=== PATIENT | female | born 1990 | race Caucasian/White ===

== ENCOUNTER 2021-12-18 15:12 | Inpatient (IN) ==
[2021-12-18] MEDS ORDERED: OXYTOCIN 30 UNITS/500 ML BAG IV PRN ×2 (15:18→22:22)
[2021-12-18] MEDS ORDERED: SODIUM CHLORIDE 0.9% 250 ML IV PRN (15:18)
--- NOTE | 2021-12-18 15:26 | History & Physical Report ---
Date of Service December 18, 2021 Assessment & Plan (1) Normal in third trimester: Plan: -ordered type and cross 2 Units -continue to monitor Admission and Anticipated Discharge Date Admission Date: December 18, 2021 History of Present Illness Chief Complaint: Labor Primary Care Provider: Eladia Shelton PA-C 31yo here for labor check. Contractions 2-6min apart starting 3hr ago, normal movement, some discharge but no bleeding/gush of fluid. Patient states no complications this but previously have post hemorrhage. Patient has been attending OB appointments regularly. Takes vitamin at home. GBS negative OB Labs: Blood Type A Positive 06/13/21 Antibody Screen NEGATIVE 06/13/21 Hemoglobin 12.5 g/dL (12.0-16.0) 10/13/21 Hematocrit 37.9 % (37-47) 10/13/21 Mean Corpuscular Volume 95.2 fL (80-100) 10/13/21 Platelet Count 204 K/uL (130-400) 10/13/21 Rubella IgG Antibody Immune (Immune) 06/13/21 Rapid Plasma Reagin Nonreactive (Nonreactive) 06/13/21 Hepatitis B Surface Antigen Neg (Neg) 06/13/21 HIV (1&2) Ab and P24 Ag, 4th Gener Neg (Neg) 06/13/21 Glucose 1 Hour 50 gm Load 92 mg/dl (70-130) 10/01/21 OB Optional Labs: Chlamydia trachomatis RNA NOT DETECTED (NOT DETECTED) 05/13/21 Neisseria gonorrhoeae RNA NOT DETECTED (NOT DETECTED) 05/13/21 Thyroid Stimulating Hormone (TSH) 0.637 uIu/ml (0.300-4.500) 03/27/21 Allergies Allergy/AdvReac Type Severity Reaction Status Date / Time shellfish derived Allergy Intermediate Hives Verified 12/18/21 14:42 Home Medications Medication Instructions Recorded Confirmed Type prenat.vits,keli,dxf-[id number]-vqfsh 1 tab PO DAILY 05/06/21 12/18/21 History terconazole 0.4 % vaginal cream 1 appful VAGINAL ONCE 7 Days #45 g 12/09/21 12/18/21 Rx Patient History Medical History (Updated 12/18/21 @ 15:25 by Paulina Harrington DO) Anxiety Depression Ectopic Fatigue Ruptured left tubal ectopic causing hemoperitoneum Thyroid cyst Surgical History H/O unilateral salpingectomy left side; 2020 History of dilation and curettage History of photorefractive keratectomy [place] teeth extracted Family History Grandfather (Maternal) Myocardial infarction Grandfather (Paternal) Myocardial infarction Pancreatic cancer Parkinson disease Social History Smoking Status: Never smoker Second Hand Exposure: No; Tobacco Cessation Education Requested by Patient: No Hx Alcohol Use: No Hx Substance Use: No Preferred Language: [place] Communication Ability: Effective Visual Impairment: No 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 Denies breast pain. Denies dysuria. Denies headache or changes in vision. Physical Exam Physical Exam: General: Alert, oriented. No acute distress. Cardiac: Regular rate and rhythm, no murmurs/rubs/gallops. Respiratory: Clear to auscultation bilaterally a/p, no wheezes/rales/rhonchi. No increased work of breathing. Symmetrical chest rise. No respiratory distress. Pelvic: Dilation 4_cm; Effacement 60%; Station -2_ per Dr. Dr. Deluca Lower Extremities: No lower extremity edema or swelling. No deep calf pain. Phil's negative bilaterally Baseline: 140 Variability:moderate Accelerations:present Decelerations:none Supervising Physician Co-Signing Physician Notes Resident Physician Supervision Note: I interviewed and examined the patient. Discussed with Dr. Harrington and agree with findings and plan as documented in the note. Any exceptions or clarifications are listed here: 31 y/o at 39 4/7 wga presents in labor, feeling movement but thinks decreased because of the ctx. Denies LOF, VB. Seen in office and 4cm, unchanged on immediate recheck but is melanie regularly and becoming quickly more uncomfortable. 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 VSS, fetus cat 1. Will get epidural, gbs neg, recently covid positive. Documented By: Clarisa Deluca MD Resident Activity Tracking Resident Involvement: Resident Care Provided Care Provided: Adult Hospital Medicine
[2021-12-18 15:44] LABS: Hematocrit (blood only) 39.2 % (37-47); Hemoglobin 13.2 g/dL (12.0-16.0); Mean Corpuscular Hgb Conc 33.7 g/dL (32-36); Mean Corpuscular Volume 94.9 fL (80-100); Mean Platelet Volume 10.1 fL (7.4-10.4); Platelet Count 171 K/uL (130-400); RDW Coefficient of Variation 13.7 % (11.5-14.5); Red Blood Count 4.13 M/uL (4.2-5.4); White Blood Count 8.09 K/uL (4.8-10.8)
[2021-12-18] MEDS: LACTATED RINGER'S 1,000 ML IV PRN ×3 (16:03→19:12)
[2021-12-18] MEDS ORDERED: ePHEDrine sulfate 50 MG/ML AMP ONE (16:05)
[2021-12-18] MEDS ORDERED: SODIUM CHLORIDE 0.9% INJ 10 ML VIAL ONE (16:06)
[2021-12-18] MEDS ORDERED: fentaNYL citrate 100 MCG/2 ML VIAL ONE (16:06)
[2021-12-18] MEDS ORDERED: BUPIVACAINE 0.25% 30 ML VIAL ONE (16:06)
[2021-12-18] MEDS ORDERED: fentaNYL 2MCG/ML ROPIVACAINE 1.25MG/ML 100 ML BAG EPI ONE (16:07)
[2021-12-18] MEDS ORDERED: NALOXONE HCL 1 MG in SODIUM CHLORIDE 0.9% 1000ML 1,000 ML IV PRN (16:50)
[2021-12-18] MEDS ORDERED: fentaNYL 2MCG/ML ROPIVACAINE 1.25MG/ML 100 ML BAG EPI PRN (16:50)
[2021-12-18] MEDS ORDERED: ePHEDrine sulfate 50 MG/ML AMP IV PRN (16:50)
[2021-12-18] MEDS ORDERED: ONDANSETRON INJ 2 MG/ML 2 ML VIAL IV PRN (16:50)
[2021-12-18] MEDS ORDERED: diphenhydrAMINE 50 MG/ML VIAL IV PRN (16:50)
[2021-12-18] MEDS ORDERED: NALOXONE HCL 0.4 MG/1 ML VIAL/CARP IV PRN (16:50)
[2021-12-18] MEDS ORDERED: NALBUPHINE HCL INJ 10 MG/ML AMP IV PRN (16:50)
--- NOTE | 2021-12-18 16:52 | Anesthesiology Consultation ---
Date of Service December 18, 2021 Assessment & Plan Chart Review Chart Review: Patient NOT seen in Pre Admission Testing and Acceptable Risk for Labor Epidural Consults Requested none ASA ASA2 Proposed Anesthesia Anesthesia Type: Labor Epidural and CSE Risk / Benefits Reviewed With: PT / POA / Parent / Guardian, Accepts Plan and Informed Consent Obtained History Height/Weight Height: 5 ft 3 in Weight: 66.678 kg Allergies Allergy/AdvReac Type Severity Reaction Status Date / Time shellfish derived Allergy Intermediate Hives Verified 12/18/21 14:42 Medications Home Medications Medication Instructions Recorded Confirmed Last Taken prenat.vits,keli,liw-zhjj-amgdg 1 tab PO DAILY 05/06/21 12/18/21 12/18/21 08:00 terconazole 0.4 % vaginal cream 1 appful VAGINAL ONCE 7 Days #45 g 12/09/21 12/18/21 Unknown Active Medications Generic Name Dose Route Start Last Admin Trade Name Freq PRN Reason Stop Dose Admin Lactated Ringer's 1,000 mls @ 125 mls/hr 12/18/21 15:18 12/18/21 16:03 Lr IV 12/20/21 15:17 999 mls/hr .Q8H PRN Administration L&D Protocol Protocol NPO Date Last Intake of Fluids: 12/18/21 Time Last Intake of Fluids: 15:00 Date Last Intake of Solids: 12/18/21 Time Last Intake of Solids: 10:00 Past Medical History Medical History Anxiety Depression Ectopic Fatigue Ruptured left tubal ectopic causing hemoperitoneum Thyroid cyst Exercise / Class Metabolic Activity II 4-5 Yardwork/Stairs/Walk up hill Past Family History Family History Grandfather (Maternal) Myocardial infarction Grandfather (Paternal) Myocardial infarction Pancreatic cancer Parkinson disease Past Surgical History Surgical History H/O unilateral salpingectomy left side; 2019 History of dilation and curettage History of photorefractive keratectomy [place] teeth extracted Past Anesthesia History No Hx of Anesthesia Complications and No Family Hx of Anesthesia Complications History of PONV No Hx of PONV and No Hx of Motion Sickness Social History Smoking Status: Never smoker Hx Alcohol Use: No Hx Substance Use: No substance use type: does not use Review of Systems no chest pain or sob Physical Exam Vital Signs Last Vital Signs Temp 36.3 C L 12/18/21 15:22 Pulse 75 12/18/21 16:45 Resp 16 12/18/21 15:22 BP 101/58 L 12/18/21 16:34 Pulse Ox 100 12/18/21 16:45 ENMT Mouth: no TMJ abnormality Thyromental Distance: > or= 3.5 Finger Breadths Mallampati Class: II Neck normal visual inspection Respiratory normal respiratory effort Auscultation: lungs clear to auscultation bilaterally Cardiovascular Rate/Rhythm: regular rate and regular rhythm Musculoskeletal Spine: normal cervical ROM Neurologic moves all extremities Psychiatric Orientation: alert and oriented x 3 Testing Laboratory Results 12/18/21 15:32
--- NOTE | 2021-12-18 19:43 | Labor Progress Brief Note ---
Date of Service December 18, 2021 Subjective Comfortable w/ epidural Assessment & Plan (1) : Plan: 31 y/o at 39 4/7 wga in labor VSS Fetus cat 1 Labor - now s/p arom, continue expectant management GBS neg Epidural in place Admission and Anticipated Discharge Date Admission Date: December 18, 2021 Physical Exam Genitourinary: Manual OB Exam: + cervical dilation (5-6), + cervical effacement 70%, + station -2 and + amniotic fluid (AROM clear) OB Exam Monitor Tracing: + external FHT monitor used, + external uterine monitor used (q4) and + category I (120/mod/+accel/-decel) Results & Data ([facility]) Vital Signs (Past 12 Hours) Vital Signs Temp Pulse Resp BP Pulse Ox 12/18/21 19:35 87 100 12/18/21 19:30 78 100 12/18/21 19:27 98.2 F 89 18 104/60 12/18/21 19:25 77 100 12/18/21 19:20 77 100 12/18/21 19:15 97 H 100 12/18/21 19:10 98.2 F 90 18 112/66 100 12/18/21 19:05 93 H 100 12/18/21 19:00 82 100 12/18/21 18:55 89 97/55 L 100 12/18/21 18:50 90 100 12/18/21 18:45 85 100 12/18/21 18:42 85 111/58 L 12/18/21 18:40 72 100 12/18/21 18:35 78 100 12/18/21 18:30 73 100 12/18/21 18:26 116 H 111/87 12/18/21 18:25 79 100 12/18/21 18:20 78 100 12/18/21 18:15 83 100 12/18/21 18:11 72 91/55 L 12/18/21 18:10 81 100 12/18/21 18:05 73 100 12/18/21 18:00 75 100 12/18/21 17:56 76 91/50 L 12/18/21 17:55 76 99 12/18/21 17:50 71 100 12/18/21 17:45 75 100 12/18/21 17:41 78 105/51 L 12/18/21 17:40 77 100 02/09/22 17:35 73 99 12/18/21 17:30 76 99 12/18/21 17:25 83 98 12/18/21 17:23 74 96/51 L 12/18/21 17:21 79 100/50 L 12/18/21 17:20 72 100 12/18/21 17:19 69 99/55 L 12/18/21 17:17 75 97/52 L 12/18/21 17:15 86 92/57 L 100 12/18/21 17:13 70 109/58 L 12/18/21 17:12 78 108/55 L 12/18/21 17:10 78 100 12/18/21 17:09 83 88/52 L 12/18/21 17:07 78 89/52 L 12/18/21 17:05 85 99 12/18/21 17:03 80 108/61 12/18/21 17:00 85 99 12/18/21 16:56 90 116/67 12/18/21 16:55 94 H 100 12/18/21 16:50 67 100 12/18/21 16:45 75 100 12/18/21 16:40 73 100 12/18/21 16:35 71 100 12/18/21 16:34 71 101/58 L 12/18/21 16:30 69 100 12/18/21 15:39 85 115/59 L 12/18/21 15:22 97.3 F L 99 H 16 117/73 12/18/21 15:20 98.2 F 16 117/73 Coding Level of Care Code None Diagnoses Z34.90
--- NOTE | 2021-12-18 22:18 | Labor Progress Brief Note ---
Date of Service December 18, 2021 Subjective Comfortable w/ epidural Assessment & Plan (1) : Plan: 31 y/o at 39 4/7 wga in labor VSS Fetus cat 1 Labor - goodprogression in descent, continue to monitor GBS neg Epidural in place Admission and Anticipated Discharge Date Admission Date: December 18, 2021 Physical Exam Genitourinary: Manual OB Exam: + cervical dilation (5-6), + cervical effacement 70% and + station -1 OB Exam Monitor Tracing: + external FHT monitor used, + external uterine monitor used (q4-6) and + category I (120/mod/+accel/-decel) Results & Data ([facility]) Vital Signs (Past 12 Hours) Vital Signs Temp Pulse Resp BP Pulse Ox 12/18/21 22:05 71 100 12/18/21 22:00 76 99 12/18/21 21:55 74 92/51 L 98 12/18/21 21:50 73 98 12/18/21 21:45 85 98 12/18/21 21:40 76 97/50 L 98 12/18/21 21:35 75 97 12/18/21 21:30 73 99 12/18/21 21:25 68 94/52 L 99 12/18/21 21:21 98.6 F 18 12/18/21 21:20 76 98 12/18/21 21:15 69 100 12/18/21 21:10 95 H 93/50 L 100 12/18/21 21:05 71 97 12/18/21 21:00 79 98 12/18/21 20:57 77 104/50 L 12/18/21 20:55 77 99 12/18/21 20:50 89 97 12/18/21 20:45 76 97 12/18/21 20:42 73 105/55 L 12/18/21 20:40 74 97 12/18/21 20:35 74 98 12/18/21 20:30 77 98 12/18/21 20:25 77 106/61 98 12/18/21 20:20 70 98 12/18/21 20:15 76 99 12/18/21 20:10 78 102/59 L 98 12/18/21 20:05 84 99 12/18/21 20:00 90 99 12/18/21 19:55 84 107/59 L 100 12/18/21 19:50 86 99 12/18/21 19:45 78 99 12/18/21 19:41 78 113/55 L 12/18/21 19:40 80 99 12/18/21 19:35 87 100 12/18/21 19:30 78 100 12/18/21 19:27 98.2 F 89 18 104/60 12/18/21 19:25 77 100 12/18/21 19:20 77 100 12/18/21 19:15 97 H 100 12/18/21 19:10 98.2 F 90 18 112/66 100 12/18/21 19:05 93 H 100 12/18/21 19:00 82 100 12/18/21 18:55 89 97/55 L 100 12/18/21 18:50 90 100 12/18/21 18:45 85 100 12/18/21 18:42 85 111/58 L 12/18/21 18:40 72 100 12/18/21 18:35 78 100 12/18/21 18:30 73 100 12/18/21 18:26 116 H 111/87 12/18/21 18:25 79 100 12/18/21 18:20 78 100 12/18/21 18:15 83 100 12/18/21 18:11 72 91/55 L 12/18/21 18:10 81 100 12/18/21 18:05 73 100 12/18/21 18:00 75 100 12/18/21 17:56 76 91/50 L 12/18/21 17:55 76 99 12/18/21 17:50 71 100 12/18/21 17:45 75 100 12/18/21 17:41 78 105/51 L 12/18/21 17:40 77 100 12/18/21 17:35 73 99 12/18/21 17:30 76 99 12/18/21 17:25 83 98 12/18/21 17:23 74 96/51 L 12/18/21 17:21 79 100/50 L 12/18/21 17:20 72 100 12/18/21 17:19 69 99/55 L 12/18/21 17:17 75 97/52 L 12/18/21 17:15 86 92/57 L 100 12/18/21 17:13 70 109/58 L 12/18/21 17:12 78 108/55 L 12/18/21 17:10 78 100 12/18/21 17:09 83 88/52 L 12/18/21 17:07 78 89/52 L 12/18/21 17:05 85 99 12/18/21 17:03 80 108/61 12/18/21 17:00 85 99 12/18/21 16:56 90 116/67 12/18/21 16:55 94 H 100 12/18/21 16:50 67 100 12/18/21 16:45 75 100 12/18/21 16:40 73 100 12/18/21 16:35 71 100 12/18/21 16:34 71 101/58 L 12/18/21 16:30 69 100 12/18/21 15:39 85 115/59 L 12/18/21 15:22 97.3 F L 99 H 16 117/73 12/18/21 15:20 98.2 F 16 117/73 Coding Level of Care Code None Diagnoses Z34.90
--- NOTE | 2021-12-19 01:20 | Delivery Summary ---
Vaginal Delivery Summary Date of Service December 19, 2021 Vaginal Delivery Summary and 1st Degree LAC PREOPERATIVE DIAGNOSIS: 1. Single intrauterine at 39 5/7 2. Labor 3. Hx PPH 4. 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 Single intrauterine at 39 5/7 2. Labor 3. Hx PPH 4. 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 Delivered PROCEDURE: 1. Normal spontaneous vaginal delivery. SURGEON: Clarisa Deluca MD ANESTHESIA: Epidural. ESTIMATED BLOOD LOSS: 300 mL FLUIDS: Continuous LR. URINE OUTPUT: None. COMPLICATIONS: None. CONDITION: Stable. INDICATIONS: 31 y/o at 39 5/7 wga presented yesterday afternoon from clinic with c/o ctx increasing in frequency and intensity. In the office she was 4cm and eventually progressed to 5cm on L&D. She was admitted and received an epidural for pain control. She underwent artificial rupture of membranes. She continued to progress but desired augmentation and pitocin was started. Shortly after, she progressed to complete and desired to push. FINDINGS: A viable female , weight pending with Apgars of 8 and 9 at 1 and 5 minutes respectively. SPECIMEN: Cord blood OPERATIVE REPORT: The patient progressed to 10 cm, 100% effaced and +2 station, pushed over intact perineum with anesthesia to deliver a viable female infant, weight and Apgars as above. Head of delivered in BHUMIKA position. No nuchal cord was present. Body and shoulders were delivered without difficulty. was delivered to maternal abdomen and nursing staff. Delayed cord clamping was performed for 60 seconds. Cord was clamped and cut. Cord blood was obtained. Placenta delivered spontaneously intact with 3-vessel cord. IV oxytocin and fundal massage were given for excellent hemostasis. Vagina, cervix, perineum, and placenta were inspected. A first degree laceration was noted and repaired using 4-0 Vicryl. Placenta appeared intact. Sponge and needle counts correct x2. No sponges were left behind. Mother and stable in immediate period. [facility] Vaginal Delivery Charge Vaginal Delivery Codes: 77929 global code for the antepartum, delivery, and post- Delivery Type Details: and 1st Degree LAC
[2021-12-19] MEDS ORDERED: OXYTOCIN 30 UNITS/500 ML BAG IV PRN (01:33)
[2021-12-19] MEDS ORDERED: ACETAMINOPHEN 325 MG TAB PO PRN (01:33)
[2021-12-19] MEDS ORDERED: BENZOCAINE 20% AER SPR 82.5 GM CAN EXT PRN (01:33)
[2021-12-19] MEDS ORDERED: bisacodyL 10 MG SUPP PR PRN (01:33)
[2021-12-19] MEDS ORDERED: DIPHTHERIA/TETANUS/PERTUSSIS 0.5 ML SYR/VIAL IM ONE (01:33)
[2021-12-19] MEDS ORDERED: HYDROCORTISONE ACETATE 25 MG SUPP PR PRN (01:33)
[2021-12-19] MEDS: IBUPROFEN 600 MG TAB PO PRN ×5 (03:03→21:32)
--- NOTE | 2021-12-19 05:58 | Anesthesia Procedure Note ---
Date of Service December 19, 2021 Anesthesia Post Epidural Note Vital Signs Vital Signs: Temp Pulse Resp BP Pulse Ox 36.8 C 72 18 100/59 L 97 12/19/21 03:26 12/19/21 03:26 12/19/21 03:26 12/19/21 03:26 12/19/21 00:50 Pain Intensity Bilateral Lower Abdomen: Pain Intensity: 2 Notes Mental Status: alert / awake / arousable and participated in evaluation Nausea / Vomiting: adequately controlled Pain: adequately controlled Airway Patency, RR, SpO2: stable & adequate BP & HR: stable & adequate Hydration State: stable & adequate Neuraxial Anesthesia: was administered and sensory block is resolving Anesthetic Complications: no major complications apparent and Pt Satisfied with anesthetic care Epidural: Removed without complications and With tip intact
[2021-12-19] MEDS: DOCUSATE SODIUM 100 MG CAP PO SCH ×2 (08:50→21:16)
[2021-12-19] MEDS: PRENATAL VITAMIN 1 TAB PO SCH (08:50)
--- NOTE | 2021-12-19 09:57 | Anesthesiology Progress Note ---
Date of Service December 19, 2021 Anesthesia Post Procedure Vital Signs Vital Signs: Temp Pulse Resp BP Pulse Ox 12/19/21 03:26 36.8 C 72 18 100/59 L 12/19/21 02:57 74 93/50 L 12/19/21 02:51 37.2 C 16 12/19/21 02:36 79 100/58 L 12/19/21 02:21 60 16 95/53 L 12/19/21 02:06 65 103/59 L 12/19/21 01:51 60 18 100/59 L 12/19/21 01:36 67 18 91/52 L 12/19/21 01:21 76 18 98/55 L 12/19/21 01:07 83 101/57 L 12/19/21 01:06 18 12/19/21 00:51 95 H 18 102/64 12/19/21 00:50 89 97 12/19/21 00:45 94 H 98 12/19/21 00:41 78 102/53 L 12/19/21 00:40 84 98 12/19/21 00:35 107 H 98 12/19/21 00:31 99 H 89 L 12/19/21 00:30 101 H 100 12/19/21 00:25 73 99 12/19/21 00:20 78 99 12/19/21 00:15 37.1 C 82 18 100 12/19/21 00:11 65 100/59 L 12/19/21 00:10 76 100 12/19/21 00:05 75 98 12/19/21 00:00 66 100 12/18/21 23:57 71 92/57 L 12/18/21 23:55 76 100 12/18/21 23:50 66 99 12/18/21 23:45 69 98 12/18/21 23:40 70 89/50 L 99 12/18/21 23:35 73 98 12/18/21 23:30 70 99 12/18/21 23:25 74 95/51 L 100 12/18/21 23:20 65 99 12/18/21 23:15 67 99 12/18/21 23:12 67 90/55 L 12/18/21 23:10 69 100 12/18/21 23:05 68 100 12/18/21 23:00 73 100 12/18/21 22:58 36.8 C 16 12/18/21 22:55 71 90/55 L 99 12/18/21 22:50 67 98 12/18/21 22:45 68 98 12/18/21 22:41 67 91/53 L 12/18/21 22:40 70 97 12/18/21 22:35 76 97 12/18/21 22:30 70 97 12/18/21 22:26 71 92/51 L 12/18/21 22:25 76 97 12/18/21 22:20 73 98 12/18/21 22:15 73 97 12/18/21 22:12 37.0 C 16 12/18/21 22:10 79 96/51 L 98 12/18/21 22:05 71 100 12/18/21 22:00 76 99 12/18/21 21:55 74 92/51 L 98 12/18/21 21:50 73 98 12/18/21 21:45 85 98 12/18/21 21:40 76 97/50 L 98 12/18/21 21:35 75 97 12/18/21 21:30 73 99 12/18/21 21:25 68 94/52 L 99 12/18/21 21:21 37.0 C 18 12/18/21 21:20 76 98 12/18/21 21:15 69 100 12/18/21 21:10 95 H 93/50 L 100 12/18/21 21:05 71 97 12/18/21 21:00 79 98 12/18/21 20:57 77 104/50 L 12/18/21 20:55 77 99 12/18/21 20:50 89 97 12/18/21 20:45 76 97 12/18/21 20:42 73 105/55 L 12/18/21 20:40 74 97 12/18/21 20:35 74 98 12/18/21 20:30 77 98 12/18/21 20:25 77 106/61 98 12/18/21 20:20 70 98 12/18/21 20:15 76 99 12/18/21 20:10 78 102/59 L 98 12/18/21 20:05 84 99 12/18/21 20:00 90 99 12/18/21 19:55 84 107/59 L 100 12/18/21 19:50 86 99 12/18/21 19:45 78 99 12/18/21 19:41 78 113/55 L 12/18/21 19:40 80 99 12/18/21 19:35 87 100 12/18/21 19:30 78 100 12/18/21 19:27 36.8 C 89 18 104/60 12/18/21 19:25 77 100 12/18/21 19:20 77 100 12/18/21 19:15 97 H 100 12/18/21 19:10 36.8 C 90 18 112/66 100 12/18/21 19:05 93 H 100 12/18/21 19:00 82 100 12/18/21 18:55 89 97/55 L 100 12/18/21 18:50 90 100 12/18/21 18:45 85 100 12/18/21 18:42 85 111/58 L 12/18/21 18:40 72 100 12/18/21 18:35 78 100 12/18/21 18:30 73 100 12/18/21 18:26 116 H 111/87 12/18/21 18:25 79 100 12/18/21 18:20 78 100 12/18/21 18:15 83 100 12/18/21 18:11 72 91/55 L 12/18/21 18:10 81 100 12/18/21 18:05 73 100 12/18/21 18:00 75 100 12/18/21 17:56 76 91/50 L 12/18/21 17:55 76 99 12/18/21 17:50 71 100 12/18/21 17:45 75 100 12/18/21 17:41 78 105/51 L 12/18/21 17:40 77 100 12/18/21 17:35 73 99 12/18/21 17:30 76 99 12/18/21 17:25 83 98 12/18/21 17:23 74 96/51 L 12/18/21 17:21 79 100/50 L 12/18/21 17:20 72 100 12/18/21 17:19 69 99/55 L 12/18/21 17:17 75 97/52 L 12/18/21 17:15 86 92/57 L 100 12/18/21 17:13 70 109/58 L 12/18/21 17:12 78 108/55 L 12/18/21 17:10 78 100 12/18/21 17:09 83 88/52 L 12/18/21 17:07 78 89/52 L 12/18/21 17:05 85 99 12/18/21 17:03 80 108/61 12/18/21 17:00 85 99 12/18/21 16:56 90 116/67 12/18/21 16:55 94 H 100 12/18/21 16:50 67 100 12/18/21 16:45 75 100 12/18/21 16:40 73 100 12/18/21 16:35 71 100 12/18/21 16:34 71 101/58 L 12/18/21 16:30 69 100 12/18/21 15:39 85 115/59 L 12/18/21 15:22 36.3 C L 99 H 16 117/73 12/18/21 15:20 36.8 C 16 117/73 Pain Intensity Bilateral Lower Abdomen: Pain Intensity: 2 Transfer of Care Handoff Completed per policy Notes Mental Status: alert / awake / arousable and participated in evaluation Nausea / Vomiting: adequately controlled Pain: adequately controlled Airway Patency, RR, SpO2: stable & adequate BP & HR: stable & adequate Hydration State: stable & adequate Neuraxial Anesthesia: was administered and sensory block resolved Anesthetic Complications: see Notes below Notes: Pt with post epidural concerns. She relates that she is having burning, tingling sensation over her left flank in about the L4 distribution. Epidural site is C/D/I with 2 small puncture zhao. No bruising around the epidural site. Pt with 5-6 cm bruise immediately above the left buttock that corresponds to her area of discomfort. Pt is moving both lower extremities without dif ficulty and has been ambulating independently without concerns. Pt relates that during labor her epidural was 1 sided with a very numb left leg. After delivery, the patient reports that she had sciatic type pain on the left side until the epidural was pulled and that she experienced nerve type pain when the epidural was removed. That sensation of nerve pain has improved, but she still occasionally gets nerve type radiating pain to the left buttock depending upon her body position. I discussed epidural placement and complications with the patient at length. The bruising over her left buttock looks almost secondary to drape trauma from the original placement. I expect this to resolve slowly over time without any mcfp complications. I suspect that her other complaints of nerve type pain (which improved with epidural removal but are not fully resolved) is from left sided nerve irritation from catheter and/or local anesthetic. Of note, patient relates that she was experiencing significant left sided sciatic pain during the later half of this . It is likely that the nerves on her left side were irritated before the epidural was ever placed due to the sciatica and that they were more vulnerable to epidural irritation. The fact that her nerve symptoms have already improved and that her epidural was only pulled about 4 hours ago is an excellent prognostic indicator. I would expect the nerve pain to continue to improve without any need for further intervention. The patient questioned whether her bruise could be indicative of internal bleeding from epidural placement. She was reassured that I do NOT have any concerns that her left bruise is indicative of internal bleeding from epidural placement. We did discuss the signs and symptoms of epidural hematoma in an effort to reassure the patient that she currently is not exhibiting ANY symptoms consistent with this diagnosis. Anesthesia will continue to follow the patient and I will inform Dr. Duque so that he can follow-up with her tomorrow. Carolina Mendez MD, PhD Anesthesiologist
[2021-12-19] MEDS ORDERED: ESCITALOPRAM OXALATE 10 MG TAB PO SCH (21:00)
[2021-12-20] MEDS: IBUPROFEN 600 MG TAB PO PRN ×3 (04:22→12:00)
--- NOTE | 2021-12-20 07:34 | Obstetrical Progress Note ---
Date of Service <Paulina Harrington DO - Last Filed: 12/20/21 07:33> December 20, 2021 Assessment & Plan <Paulina Harrington DO [facility] Last Filed: 12/20/21 07:33> (1) Encounter for care and examination after delivery: (2) History of hemorrhage: 31 yo post op day1 from with hx PPH, doing well. -Continue routine post care. -vital signs reviewed and WNL (Tmax 36.9) -Blood Type A+, GBS-, Rubella immune -Encourage ambulation, monitor and control pain with Motrin, tylenol PRN, resume regular diet, monitor lochia -encourage bottle feeding -hemoglobin 13.2 -has not required transfusion since delivery -patient interested in home today Day #:: 1 <Tonia Kraus, - Last Filed: 12/20/21 07:56> (1) Encounter for care and examination after delivery: (2) History of hemorrhage: Subjective <Paulina Harrington - Last Filed: 12/20/21 07:33> Ambulation: ambulating normally Voiding: no voiding problems Passing Gas:: Yes Diet Tolerance:: regular diet Lochia:: Small Feeding Type:: bottle feeding Current Pain Level(1-10): 3 Review of Systems Denies fever, chills, sweats Denies shortness of breath, difficulty breathing, chest pain, palpitations, chest pressure. Denies breast pain. Denies dysuria. Denies headache or changes in vision. Physical Exam <Paulina Harrington DO [facility] Last Filed: 12/20/21 07:33> General: Alert, oriented. No acute distress. Cardiac: Regular rate and rhythm, no murmurs/rubs/gallops. Respiratory: Clear to auscultation bilaterally a/p, no wheezes/rales/rhonchi. No increased work of breathing. Symmetrical chest rise. No respiratory distress. Abdomen: Soft, nontender, nondistended. Bowel sounds present. Uterus: Uterine fundus firm, palpable 1 cm below umbilicus. Lower Extremities: No lower extremity edema or swelling. No deep calf pain. Phil's negative bilaterally.. Results & Data ([facility]) <Paulina Len DO [facility] Last Filed: 12/20/21 07:33> Vital Signs (Past 12 Hours) Vital Signs Temp Pulse Resp BP 12/19/21 23:58 36.9 C 66 18 106/70 12/19/21 19:47 36.5 C 69 18 101/64 <Tonia Kraus DO - Last Filed: 12/20/21 07:56> Co-Signing Physician Notes Resident Physician Supervision Note: I was present with Dr. Harrington during the history and exam. I discussed the case with the resident and agree with the findings and plan as documented in the note. Any exceptions or clarifications are listed here: PPD#1 doing well. Desires discharge home. Instructions reviewed. Documented By: Tonia Kraus DO Resident Activity Tracking <Paulina Harrington, - Last Filed: 12/20/21 07:33> Resident Involvement: Resident Care Provided Care Provided: Adult Hospital Medicine
[2021-12-20] MEDS: DOCUSATE SODIUM 100 MG CAP PO SCH (08:32)
[2021-12-20] MEDS: PRENATAL VITAMIN 1 TAB PO SCH (08:32)
--- NOTE | 2021-12-20 11:07 | Anesthesiology Progress Note ---
Date of Service December 20, 2021 Anesthesia Post Procedure Vital Signs Vital Signs: Temp Pulse Resp BP Pulse Ox 12/20/21 08:30 36.7 C 65 18 101/67 97 12/19/21 23:58 36.9 C 66 18 106/70 12/19/21 19:47 36.5 C 69 18 101/64 12/19/21 15:40 36.8 C 55 L 18 101/62 97 12/19/21 11:40 36.7 C 61 18 97/60 L 99 Pain Intensity Bilateral Lower Abdomen: Pain Intensity: 2 Left Flank: Pain Intensity: 2 Transfer of Care Handoff Completed per policy Notes Mental Status: alert / awake / arousable Patient Amnestic to Procedure: Yes Nausea / Vomiting: adequately controlled Pain: adequately controlled Airway Patency, RR, SpO2: stable & adequate BP & HR: stable & adequate Hydration State: stable & adequate Anesthetic Complications: no major complications apparent and Pt Satisfied with anesthetic care Notes: The patient is doing well. She has a history of left sided sciatica which worsened in the last trimester of . She was noted to have a brief left sided paresthesia upon placement of her CSE. She had greater numbness on her left than right during labor. After delivery the patient noted a second discomfort on her lower left back. The patient was concerned about an epidural hematoma. Dr. Mendez evaluated the patient and noted a bruise over the patient's left lower flank but that the patient was neurologically intact and otherwise doing well. The patient is much improved today with no neurologic deficits and minimal left sided pain. On exam the patient grossly had no neurologic deficits. She does have a bruise located over her lower left flank, but the bruise is no where near her spine/epidural site. Her spine had no tenderness to palpation. I discussed with the patient that since she has no current neurologic symptoms that she does not have an epidural hematoma. She may have had some irritation of her nerve root from the epidural/local anesthetic but that appears to have resolved. I explained that the chronic left sided sciatica may continue unless the underlying cause for it is treated. I also told her that her bruise should heal with time. The patient was told to contact the anesthesia department for any new onset of numbness, weakness, or incontinence. She agrees with this plan.
[2021-12-20] MEDS ORDERED: bisacodyL 5 MG TABEC PO SCH (20:00)
== END 2021-12-20 13:40 | disposition home or self-care (01) | DRG 807 ==
LOC: 4S2 15:12 → 4S1 16:00 → 4S2 12-19 03:26